=== PATIENT | male | born 1960 | race Two or more races ===

== ENCOUNTER 2021-10-21 13:24 | Inpatient (IN) | payer MEDICAID, OTHER ==
[~2021-10-21] VITALS: Ht 177.8 cm; Wt 99.5 kg
[2021-10-21 14:17] LABS: Basophils # (auto) 0.1 10 ^3/uL (0-0.2); Basophils % (auto) 1.1 % (0.0-2.0); Eosinophils # (auto) 0.2 10 ^3/uL (0-0.8); Eosinophils % (auto) 2.3 % (0.0-7.0); Hematocrit 44.2 % (41.0-53.0); Hemoglobin 14.8 g/dL (13.5-17.5); Lymphocytes # (auto) 2.4 10 ^3/uL (0.4-5.4); Lymphocytes % (auto) 33.5 % (10.0-50.0); Mean Corpuscular Hemoglobin 29.3 pg (28.0-32.0); Mean Corpuscular Hgb Conc. 33.6 g/dL (32.0-36.0); Mean Corpuscular Volume 87.3 fL (80.0-100.0); Monocytes # (auto) 0.7 10 ^3/uL (0-1.3); Monocytes % (auto) 9.8 % (0.0-12.0); Neutrophils # (auto) 3.7 10 ^3/uL (1.6-8.6); Neutrophils % (auto) 53.3 % (37.0-80.0); Red Blood Cells 5.06 10^6/uL (4.5-5.90); Red Cell Distribution Width 14.1 % (11.8-14.3)
[2021-10-21 14:33] LABS: Albumin 3.5 g/dL (3.4-5.0); Calcium 8.8 mg/dL (8.5-10.1); Potassium 3.3 mmol/L (3.5-5.1)
[2021-10-21 14:36] LABS: BUN/Creatinine Ratio 20.5; Bilirubin, Total 0.6 mg/dL (0.2-1.0); Total Protein 6.5 g/dL (6.4-8.2)
[2021-10-21] MEDS ORDERED: NITROGLYCERIN 0.4 MG SL TAB SL PRN (16:45)
[2021-10-21] MEDS ORDERED: SODIUM CHLORIDE 0.9% 1,000 ML IV ONE (16:45)
[2021-10-21] MEDS ORDERED: MORPHINE SULFATE INJ 2 MG/ml SYRG IV PRN (16:45)
[2021-10-21 18:17] LABS: Blood Alcohol < 3.0 mg/dL (0-5); Cholesterol 158 mg/dL (< 200); Magnesium 1.8 mg/dL (1.6-2.6)
[2021-10-21 18:20] LABS: HDL Cholesterol 32 mg/dL (40-59); LDL Cholesterol 109 mg/dL (< 100); Triglycerides 178 mg/dL (< 150)
[2021-10-21 20:34] LABS: Urine Bacteria NONE SEEN /hpf (None Seen); Urine Blood TRACE /uL (Negative); Urine Mucus FEW (None Seen); Urine WBC 1 /hpf (0 - 3)
[2021-10-21 20:40] LABS: Amphetamine Screen, Urine POSITIVE (NEGATIVE); Barbiturate Scree,Urine NEGATIVE (NEGATIVE); Benzodiazephine Screen, Urine NEGATIVE (NEGATIVE); Cannabinoid Screen, Urine NEGATIVE (NEGATIVE); Cocaine Screen, Urine NEGATIVE (NEGATIVE); Opiate Scree,Urine NEGATIVE (NEGATIVE); Phencyclidine Screen, Urine NEGATIVE (NEGATIVE)
[2021-10-21] MEDS ORDERED: LORazepam 0.5 MG TAB PO ONE (20:45)
[2021-10-21] MEDS: SODIUM CHLORIDE 0.9% 1,000 ML IV SCH (21:31)
[2021-10-21] MEDS ORDERED: MIDAZOLAM HCL 2MG/2ML 2ml VIAL (1mg/ml) IV PRN (22:00)
[2021-10-21] MEDS: ATORVASTATIN 20 MG TAB PO SCH (22:19)
[2021-10-22] VITALS (8 sets, daily range): BP systolic 128–157; BP diastolic 72–92
[2021-10-22] MEDS: SODIUM CHLORIDE 0.9% 1,000 ML IV SCH (02:45)
[2021-10-22] MEDS ORDERED: ENOXAPARIN SOD 40 MG/0.4 ML SYRINGE SC SCH (10:00)
[2021-10-22] MEDS: ASPirin-EC 81 mg tab PO SCH (10:28)
[2021-10-22] MEDS: NICOTINE 14 MG/24HR TOPICAL PATCH TD SCH (10:28)
[2021-10-22] MEDS: LORazepam 0.5 MG TAB PO PRN ×2 (10:47→19:29)
[2021-10-22] MEDS: ATORVASTATIN 20 MG TAB PO SCH (20:42)
[2021-10-23 05:00] VITALS: BP 128/92
[2021-10-23 06:09] LABS: Calcium 8.6 mg/dL (8.5-10.1); Potassium 3.5 mmol/L (3.5-5.1)
[2021-10-23 06:11] LABS: BUN/Creatinine Ratio 21.6
[2021-10-23 08:00] VITALS: BP 156/82
[2021-10-23 09:15] VITALS: BP 156/82
[2021-10-23] MEDS: NICOTINE 14 MG/24HR TOPICAL PATCH TD SCH (10:20)
[2021-10-23] MEDS: ASPirin-EC 81 mg tab PO SCH (10:20)
[2021-10-23] MEDS: LORazepam 0.5 MG TAB PO PRN (10:39)
[2021-10-23] MEDS ORDERED: hydrALAZINE HCL 25 MG TAB PO ONE (11:30)
[2021-10-23 13:00] VITALS: BP 144/87
[2021-10-23] MEDS ORDERED: AMLO-496 PO (13:37)
[2021-10-23] MEDS ORDERED: ATOR20TA50 PO (13:37)
[2021-10-23] MEDS ORDERED: ASPI-543 PO (13:37)
[2021-10-23 15:09] VITALS: BP 144/87
[2021-10-23] MEDS ORDERED: hydrALAZINE HCL 25 MG TAB PO SCH (22:00)
== END 2021-10-23 16:48 | disposition home or self-care (01) | DRG 45 ==
LOC: ER 13:24 → TELE 16:46 → TELE-WESTW 10-22 01:45
PROVIDERS: ADMIT Registered Nurse; ATTEND Internal Medicine
DX: I63.9 Cerebral infarction, unspecified (principal); G81.94 Hemiplegia, unspecified affecting left nondominant side; E87.6 Hypokalemia; Z20.822 Contact with and (suspected) exposure to COVID-19; F17.210 Nicotine dependence, cigarettes, uncomplicated; F41.9 Anxiety disorder, unspecified; F15.10 Other stimulant abuse, uncomplicated; I10 Essential (primary) hypertension; Z79.82 Long term (current) use of aspirin; Z79.899 Other long term (current) drug therapy; Z71.6 Tobacco abuse counseling
CPT/HCPCS: 36415; 70450; 70551; 71045; 80048; 80053; 80061; 80307; 80320; 81001; 83036; 83735; 84484; 85025; 87081; 92610; 93005; 93306; 93886; 96360; 97163; G0378